=== PATIENT | male | born 1955 | race Caucasian/White ===

== ENCOUNTER 2017-02-09 18:41 | Emergency (ER) | payer OTHER ==
[~2017-02-09] VITALS: Ht 180.3 cm; Wt 108.9 kg
[~2017-02-09 18:41] MED LIST: AMOXICOT500 MG PO; BACTRIM DS 8001 TAB PO; ECOTRIN81 MG PO; LEVOTHYROXIN0.112 M1 PO; PROTONIX 40MG T40 MG PO
[2017-02-09 18:49] VITALS: BP 152/98
--- NOTE | 2017-02-09 19:02 | ED HEAD/FACIAL INJ COMPLAINT ---
History of Present Illness General Chief Complaint: Laceration Procedure Stated Complaint: LAC TO HEAD FROM CAR DOOR Source: patient Exam Limitations: no limitations Vital Signs & Intake/Output Vital Signs & Intake/Output Vital Signs Date Time Temp Pulse Resp B/P B/P Pulse O2 O2 Flow FiO2 Mean Ox Delivery Rate 02/09 1849 97.8 90 15 152/98 97 Room Air Room Air Allergies Coded Allergies: ciprofloxacin (From CIPRO) (Severe, LIP SWELLING 02/09/17) Reconcile Medications Aspirin (Ecotrin*) 81 MG TABLET.DR 1 TAB PO DAILY HEART/BLOOD (Reported) Levothyroxine Sodium 112 MCG TABLET 1 TAB PO DAILY THYROID (Reported) Pantoprazole Sodium 40 MG TABLET.DR 1 TAB PO DAILY GI (Reported) Triage Note: PT TO ED FOR LAC TO R UPPER FOREHEAD/HAIR LINE. DENIES HEADACHE, NAUSEA. LAC WELL CONTROLLED. LAST TETANUS WITHIN TEN YEARS. Triage Nurses Notes Reviewed? yes Onset: Abrupt Severity: mild Severity Numbers: 1 Location: frontal Method of Injury: direct blow HPI: Patient is a 61-year-old male who presents emergency and that this evening patient was opening his car hatchback with the hatchback head struck the top aspect of patient's head and scalp resulting a laceration was bleeding was controlled prior to arrival. Tetanus is 10 years ago. Patient complains of minimal localized scalp pain. Denies any specific headaches denies any loss of consciousness neck pain blurred vision photophobia and is otherwise without complaints (ZITA ORTIZ) Past History Travel History Traveled to [place] past 21 day No Medical History Any Pertinent Medical History? see below for history Gastrointestinal: "SHOTSKY'S RING" Renal: KIDNEY STONE Endocrine: hypothyroidism Surgical History Surgical History: cholecystectomy Psychosocial History What is your primary language [place] Tobacco Use: Never used ETOH Use: denies use Illicit Drug Use: denies illicit drug use Family History Hx Contributory? No (ZITA ORTIZ) Review of Systems Review of Systems Constitutional: Reports: no symptoms. EENTM: Reports: no symptoms. Respiratory: Reports: no symptoms. Cardiovascular: Reports: no symptoms. GI: Reports: no symptoms. Genitourinary: Reports: no symptoms. Musculoskeletal: Reports: no symptoms. Skin: Reports: see HPI. Neurological/Psychological: Reports: no symptoms. Hematologic/Endocrine: Reports: see HPI, bleeding. Immunologic/Allergic: Reports: no symptoms. All Other Systems: Reviewed and Negative (ZITA ORTIZ) Physical Exam Physical Exam General Appearance: no apparent distress, alert, comfortable Head: evidence of injury Cranial Nerves: normal hearing, normal speech, PERRL Comments: Well-developed well-nourished person in no acute distress HEENT: Normal EENT exam, extraocular motion intact, no nystagmus. Pupils equally round and reactive to light and accommodation. Nose is atraumatic. External auditory canal and Tympanic membranes clear. Pharynx normal. No swelling or edema. Neck: Supple, no lymphadenopathy, normal range of motion without pain or tenderness Back: Nontender, no CVA tenderness. Cardiovascular: Regular rate and rhythms no murmurs rubs or gallops, normal JVP Respiratory: Chest nontender. No respiratory distress.breath sounds clear to auscultation bilaterally Abdomen: Soft, nontender nondistended, no appreciable organomegaly. Normal bowel sounds. No ascites Extremity: No edema, no calf tenderness to palpation, normal and equal pulses. Neuro: Alert oriented x3, motor sensory normal, cranial nerves II through XII grossly intact. Skin: No appreciable rash on exposed skin, skin is warm and dry. Psych: Mood and affect is normal, memory and judgment is normal. Diagram Head: 1) Noted 2 cm subcutaneous crescent shaped laceration no active bleeding (ZITA ORTIZ) Progress Differential Diagnosis: corneal abrasion, c-spine injury, facial fracture, globe injury, ICH, orbit fracture, skull fracture Plan of Care: Current Medications Sig/Scotty Start time Last Medication Dose Stop Time Status Admin Tetanus/Diphtheria 0.5 ML ONCE ONE 02/10 2000 UNVr Toxoids Adsorbed 02/09 2001 (Decavac) Patient has no concerns of basal skull fractures no vomiting no severe mechanism injury denies any headache Patient at this time is not warranted emergent CT scan of head for concerns of ICH. (ZITA ORTIZ) Departure Departure Disposition: HOME OR SELF CARE Condition: Stable Clinical Impression Primary Impression: Scalp laceration Referrals: JINNY MENDOZA,ROMELIA Walker (PCP/Family) Additional Instructions: As discussed if you note signs of infection redness, pain, swelling, discharge return to emergency room. Begin to apply bacitracin to the area once a day for the following 4 days and leave the area open to improve healing. Return to emergency room in 7 days for staple removal Departure Forms: Customer Survey General Discharge Information (ZITA ORTIZ) PA/CARE SERVICES MANAGER Co-Sign Statement Statement: ED Attending supervision documentation- [] I saw and evaluated the patient. I have also reviewed all the pertinent lab results and diagnostic results. I agree with the findings and the plan of care as documented in the PA's/CARE SERVICES MANAGER's documentation. [x] I have reviewed the ED Record and agree with the PA's/CARE SERVICES MANAGER's documentation. [] Additions or exceptions (if any) to the PAs/CARE SERVICES MANAGER's note and plan are summarized below: [] (SILVANO MENDOZA,MARISSA Kramer) Procedures Laceration/Wound Repair Laceration/Wound Repair: Wound Location: head Wound's Depth, Shape: flap, subcutaneous Wound Length (cm): 2 Wound Explored: clean, no foreign body removed, irrigated extensively Irrigated w/ Saline (ccs): 360 Betadine Prep? Yes Suture Size/Type: jayjay Number of Sutures: 3 Progress: Margins were revised with staple placement. Bacitracin was then applied (ZITA ORTIZ)
[2017-02-09] MEDS ORDERED: LEVOTHYROXINE112 MCG PO (19:53)
[2017-02-09] MEDS ORDERED: PANTOPRAZOLE SO40 M1 PO (19:53)
[2017-02-09] MEDS ORDERED: ASPIRIN EC81 M1 PO (19:54)
== END 2017-02-09 20:06 ==
LOC: ERH 18:41
DX: S01.01XA Laceration without foreign body of scalp, initial encounter (principal); W22.8XXA Striking against or struck by other objects, initial encounter; Y93.89 Activity, other specified; Y92.9 Unspecified place or not applicable
CPT/HCPCS: 90471; 90714

== ENCOUNTER 2017-02-17 10:16 | Emergency (ER) | payer OTHER ==
[~2017-02-17] VITALS: Ht 180.3 cm; Wt 108.9 kg
[~2017-02-17 10:16] MED LIST changes: +ASPIRIN EC81 M1 PO; +LEVOTHYROXINE112 MCG PO; +PANTOPRAZOLE SO40 M1 PO
[2017-02-17 10:22] VITALS: BP 150/93
--- NOTE | 2017-02-17 10:32 | ED ANIMAL BITE/WOUND CHECK ---
History of Present Illness General Chief Complaint: Suture Removal/Wound Recheck Stated Complaint: SUTURE REMOVAL Source: patient, old records Exam Limitations: no limitations Vital Signs & Intake/Output Vital Signs & Intake/Output Vital Signs Date Time Temp Pulse Resp B/P B/P Pulse O2 O2 Flow FiO2 Mean Ox Delivery Rate 02/17 1022 98.9 75 15 150/93 98 Room Air Room Air Allergies Coded Allergies: ciprofloxacin (From CIPRO) (Severe, LIP SWELLING 02/17/17) Reconcile Medications Aspirin (Ecotrin*) 81 MG TABLET.DR 1 TAB PO DAILY HEART/BLOOD (Reported) Levothyroxine Sodium 112 MCG TABLET 1 TAB PO DAILY THYROID (Reported) Pantoprazole Sodium 40 MG TABLET.DR 1 TAB PO DAILY GI (Reported) Triage Note: PT TO ED FOR STAPLE REMOVAL FROM FOREHEAD. DENIES COMPLICATIONS. Triage Nurses Notes Reviewed? yes Onset: Last week Duration: week(s): (1) Timing: single episode today Severity: mild Severity Numbers: 1 No Modifying Factors: none HPI: 61-year-old male with no medical history presents for removal of jayjay. Patient seen in the emergency department one week ago for head lac. 3 jayjay were used to approximate the wound. he has been keeping the area clean and dry and applying bacitracin once daily. He currently feels well and denies any pain. There has been no discharge no redness no swelling no changes in vision no vomiting no nausea. Patient is feeling well and has no concerns. He is up- to-date on tetanus. (BRANDI DIETZ PA-C) Past History Travel History Traveled to [place] past 21 day No Medical History Any Pertinent Medical History? see below for history Gastrointestinal: "SHOTSKY'S RING" Renal: KIDNEY STONE Endocrine: hypothyroidism Tetanus Vaccine: 02/09/17 Surgical History Surgical History: cholecystectomy Psychosocial History What is your primary language Kosovan Tobacco Use: Never used ETOH Use: denies use Illicit Drug Use: denies illicit drug use Family History Hx Contributory? No (BRANDI DIETZ PA-C) Review of Systems Review of Systems Constitutional: Reports: no symptoms. EENTM: Reports: no symptoms. Respiratory: Reports: no symptoms. Cardiovascular: Reports: no symptoms. GI: Reports: no symptoms. Genitourinary: Reports: no symptoms. Musculoskeletal: Reports: no symptoms. Skin: Reports: see HPI. Neurological/Psychological: Reports: no symptoms. Hematologic/Endocrine: Reports: no symptoms. Immunologic/Allergic: Reports: no symptoms. All Other Systems: Reviewed and Negative (BRANDI DIETZ PA-C) Physical Exam Physical Exam General Appearance: well developed/nourished, no apparent distress, alert, awake Head: normal appearance, lacerations (FRONTAL 2CM LINEAR WELL HEALED) Eyes: Bilateral: normal appearance, PERRL, EOMI. Ears, Nose, Throat: normal pharynx, normal ENT inspection, hearing grossly normal Neck: normal inspection, supple, full range of motion Respiratory: normal breath sounds, chest non-tender, no respiratory distress, lungs clear Cardiovascular: regular rate/rhythm, normal peripheral pulses Peripheral Pulses: 2+ radial (R), 2+ radial (L) Gastrointestinal: normal bowel sounds, soft, non-tender, no organomegaly Back: normal inspection, normal range of motion Extremities: normal range of motion Neurologic/Psych: no motor/sensory deficits, awake, alert, oriented x 3, normal gait Reflexes: 2+: knee (R), knee (L). Skin: intact, normal color, warm/dry Comments: There is a 2 cm linear well healing laceration located on the frontal area of the scalp just passed the hairline. [address] and when is clean and dry. There is no erythema and no discharge no swelling or pain with palpation. (BRANDI DIETZ PA-C) Progress Differential Diagnosis: abscess, cellulitis, FOREIGN BODY, POOR WOUND HEALING Plan of Care: Laceration is well healed with 3 jayjay intact. Consent obtained to remove jayjay. 3 jayjay removed. Patient tolerated well without any palpitations. Patient instructed to keep the area clean and dry and continue apply bacitracin once a day. Return to the emergency department with any concerns signs of infection. Follow-up with the primary care doctor this week. (BRANDI DIETZ PA-C) Departure Departure Disposition: HOME OR SELF CARE Condition: Stable Clinical Impression Primary Impression: Removal of jayjay Referrals: JINNY MENDOZA,ROMELIA Walker (PCP/Family) Additional Instructions: Keep area clean and dry apply bacitracin once a day for the next couple days. Workup for signs of infection such as redness swelling discharge or pain. Return to emergency department as needed. Departure Forms: Customer Survey General Discharge Information (BRANDI DIETZ PA-C) PA/SHIPWRIGHT APPRENTICE Co-Sign Statement Statement: ED Attending supervision documentation- [] I saw and evaluated the patient. I have also reviewed all the pertinent lab results and diagnostic results. I agree with the findings and the plan of care as documented in the PA's/SHIPWRIGHT APPRENTICE's documentation. [X] I have reviewed the ED Record and agree with the PA's/SHIPWRIGHT APPRENTICE's documentation. [] Additions or exceptions (if any) to the PAs/SHIPWRIGHT APPRENTICE's note and plan are summarized below: [] (KARLI MENDOZA,CARLOS)
== END 2017-02-17 10:41 ==
LOC: ERH 10:16
DX: S01.91XD Laceration without foreign body of unspecified part of head, subsequent encounter (principal)
CPT/HCPCS: 99281